=== PATIENT | female | born 1980 | race Caucasian/White ===

== ENCOUNTER → 2020-11-13 | Outpatient (CLI) | payer OTHER ==
--- NOTE | 2020-11-13 16:21 | KCIC ---
EXAMINATION: MRI LEFT LOWER EXTREMITY JOINT WITHOUT INDICATIONS: Left knee pain posteriorly. Going upstairs in August. Pain on both sides the patella. TECHNIQUE: Multiplanar multisequence MRI of the left knee was obtained without contrast. COMPARISON: None. FINDINGS: MENISCI: The medial and lateral menisci are intact. LIGAMENTS: The anterior and posterior cruciate ligaments are intact. The medial collateral ligament and lateral collateral ligament complex are intact. EXTENSOR MECHANISM: Very mild edema in the suprapatellar fat pad Hoffa's fat pad is normal. Quadrice ps and patellar tendons are intact. Retinacula are intact. BONES AND CARTILAGE: Marrow signal is normal. There is no acute fracture. There is mild superficial cartilage irregularity along the patella with a superficial partial-thickness cartilage fissure at th e median ridge. Medial and lateral compartment cartilage is intact. OTHER: No joint effusion. Mild pes anserine bursitis. No Jenkins cyst. Muscles and tendons are intact. IMPRESSION: 1. No meniscal tear or internal derangement. 2. Mild patellofemoral chondromalacia. 3. Mild edema in the suprapatellar fat pad which can be seen with impingement. 4. Mild pes anserine bursitis. Electronically signed by: Suma Hdez MD (11/13/2020 4:18 PM) [id number]
== END ==
LOC: KCIC MRI 13:41
PROVIDERS: ATTEND Family Medicine
DX: M22.42 Chondromalacia patellae, left knee (principal); M70.52 Other bursitis of knee, left knee
CPT/HCPCS: 73721